=== PATIENT | male | born 1980 ===

== ENCOUNTER 2019-07-13 20:23 | Emergency (ER) ==
[~2019-07-13] VITALS: Ht 172.7 cm; Wt 77.3 kg
[2019-07-13 20:47] LABS: COLLECTION METHOD CLEAN CATCH
[2019-07-13 21:10] LABS: PH 5 (5-8); SQUAMOUS EPITHELIAL None Seen /hpf; URINE APPEARANCE Clear; URINE BACTERIA None Seen /hpf; URINE BILIRUBIN Negative (NEGATIVE); URINE BLOOD Negative (NEGATIVE); URINE COLOR Straw; URINE GLUCOSE Negative (NEGATIVE); URINE KETONE Negative (NEGATIVE); URINE LEUKOCYTE ESTERASE Negative (NEGATIVE); URINE NITRATE Negative (NEGATIVE); URINE PROTEIN(semi-quant) Negative (NEGATIVE); URINE RBC 0-2 /hpf; URINE UROBILINOGEN Negative (NEGATIVE)
[2019-07-13 21:22] LABS: TRICYCLIC ANTIDEPRESS URINE NEGATIVE
[2019-07-13 22:05] LABS: BASO # 0.1 (0.0-0.2); BASO % 1.2 % (0.0-2.0); EOS # 0.2 (0.0-0.7); EOS % 3.8 % (0-4.0); GRAN # 2.8 (1.4-6.5); GRAN % 46.9 % (42.2-75.2); HEMATOCRIT 38.8 % (42.0-52.0); HEMOGLOBIN 13.4 g/dl (13.5-18.0); LYMPH # 2.2 (1.2-3.4); LYMPH % 36.2 % (20.0-51.0); MEAN CELL VOLUME 95 fl (80.0-100.0); MEAN CORPUSCULAR HEMOGLOBIN 33 pg (27.0-31.0); MEAN CORPUSCULAR HGB CONC 35 g/dl (33.0-37.0); MEAN PLATELET VOLUME 10.1 fl (7.4-10.4); MONO # 0.7 (0.1-0.6); MONO % 11.7 % (1.7-9.3); PLATELET COUNT 270 K/mm3 (130-400); RED BLOOD COUNT 4.07 M/mm3 (4.20-5.60); REDCELL DISTRIBUTION WIDTH-CV 12.8 % (11.5-14.5)
[2019-07-13 22:23] LABS: ALANINE AMINOTRANSFERASE 22 U/L (21-72); ALBUMIN 4.5 gm/dL (3.5-5.0); ALCOHOL(ethanol),MEDICAL 276 mg/dL; ALKALINE PHOSPHATASE 67 U/L (50-136); ANION GAP 13 mmol/L (7-16); AST,SGOT 41 U/L (15-37); BILIRUBIN,TOTAL 0.3 mg/dL (0.0-1.0); BLOOD UREA NITROGEN 15 mg/dL (9-20); CALCIUM 8.5 mg/dL (8.4-10.2); CARBON DIOXIDE 26 mmol/L (22-30); CHLORIDE 105 mmol/L (98-107); CREATININE, serum 0.88 (0.66-1.25); GLUCOSE 90 mg/dL (74-106); POTASSIUM 4.1 mmol/L (3.4-5.0); SODIUM 143 mmol/L (137-145); TOTAL PROTEIN 7.7 gm/dL (6.4-8.2)
[2019-07-13 22:30] LABS: ACETAMINOPHEN < 10 ug/mL (10-30)
== END 2019-07-14 12:10 | disposition home or self-care (01) ==
LOC: COL.ER 20:23
PROVIDERS: Emergency Medicine
DX: F29 Unspecified psychosis not due to a substance or known physiological condition (principal); R45.851 Suicidal ideations
CPT/HCPCS: J2060